=== PATIENT | female | born 1995 ===

== ENCOUNTER 2017-11-26 12:32 | Emergency (ER) | payer MEDICAID ==
[2017-11-26 12:42] VITALS: BMI 19.0
[2017-11-26 12:46] VITALS: O2SAT 100
[2017-11-26] MEDS ORDERED: Naproxen 550 mg Tab PO STA (13:32)
--- NOTE | 2017-11-26 13:35 | C.PDOC ---
History Of Present Illness The patient reports that she woke up today with right sided neck pain which is worsened with movement. Patient reports that the pain improvement when at rest and not moving the neck. Denies trauma, fever, vomiting, numbness, weakness. Time Seen by Provider: 11/26/17 13:19 Chief Complaint (Nursing): Medical Clearance History Per: Patient History/Exam Limitations: no limitations Past Medical History Reviewed: Historical Data, Nursing Documentation, Vital Signs Vital Signs: Last Vital Signs Temp 99.2 F 11/26/17 14:15 Pulse 63 11/26/17 14:15 Resp 18 11/26/17 14:15 BP 95/55 L 11/26/17 14:15 Pulse Ox 100 11/26/17 14:15 Surgical History: Family History: States: No Known Family Hx - Social History Hx Tobacco Use: No Hx Alcohol Use: No Hx Substance Use: No - Immunization History Hx Tetanus Toxoid Vaccination: No Hx Influenza Vaccination: Yes Hx Pneumococcal Vaccination: No Review Of Systems Except As Marked, All Systems Reviewed And Found Negative. Constitutional: Negative for: Fever, Chills Eyes: Negative for: Vision Change ENT: Negative for: Ear Pain Cardiovascular: Negative for: Chest Pain, Edema, Light Headedness Gastrointestinal: Negative for: Vomiting Musculoskeletal: Positive for: Neck Pain Skin: Negative for: Rash, Lesions Neurological: Negative for: Weakness, Numbness, Headache, Dizziness Physical Exam - Physical Exam Appears: Non-toxic, No Acute Distress Skin: Normal Color, Warm, No Rash Head: Atraumatic, Normacephalic Eye(s): bilateral: Normal Inspection, PERRL, EOMI Ear(s): Bilateral: Normal Oral Mucosa: Moist Neck: No Midline Cervical Tenderness, Paracervical Tenderness ((+) right sided ) , Supple, Other ((+) pain with moving the neck to the right side. ) Chest: Symmetrical, No Deformity Cardiovascular: Rhythm Regular Respiratory: No Accessory Muscle Use Extremity: Bilateral: Atraumatic, Normal Color And Temperature, Normal ROM Pulses: Left Radial: Normal, Right Radial: Normal Neurological/Psych: Oriented x3, Normal Speech, Normal Cranial Nerves, Other ( No focal deficits) ED Course And Treatment O2 Sat by Pulse Oximetry: 100 (RA) Pulse Ox Interpretation: Normal Medical Decision Making Medical Decision Making: Old records reviewed, no prior visits. Plan: --Naproxen 550 mg PO --Flexeril 10 mg PO On re-exam, the patient reports improvement of symptoms. Lungs are CTA, heart is RRR, abdomen is soft, non-tender and tolerating PO well. Pt is ambulatory in the ED with steady gait. Follow up with the medical doctor/clinic within 1-2 days without fail. Return if worsened. Disposition - Disposition Referrals: [facility] [Outside] Disposition: HOME/ ROUTINE Disposition Time: 14:03 Condition: GOOD Additional Instructions: Follow up with the medical doctor/clinic within 1-2 days without fail. Return if worsened. Prescriptions: Cyclobenzaprine [Flexeril] 5 mg PO TID #21 tab Naproxen [Naprosyn] 500 mg PO BID #20 tab Instructions: Gary (DC) Forms: [employer] (Japanese) Print Language: GERMAN - Clinical Impression Clinical Impression: Torticollis - PA / SUPERVISOR BRINE / Resident Statement MD/DO has reviewed & agrees with the documentation as recorded. - Scribe Statement The provider has reviewed the documentation as recorded by the Scribe (Nuzhat Barron) All medical record entries made by the Scribe were at my direction and personally dictated by me. I have reviewed the chart and agree that the record accurately reflects my personal performance of the history, physical exam, medical decision making, and the department course for this patient. I have also personally directed, reviewed, and agree with the discharge instructions and disposition.
[2017-11-26] MEDS ORDERED: Naproxen 550 mg Tab PO ONE (13:42)
[2017-11-26 14:31] VITALS: BP 95/55; PULSE 63; RESP 18; TEMP 99.2
== END 2017-11-26 14:15 | disposition home or self-care (01) ==
LOC: C.ER 12:32
DX: M43.6 Torticollis (principal)